=== PATIENT | male | born 1980 ===

== ENCOUNTER 2017-09-06 01:42 | Emergency (ER) | payer SELFPAY ==
--- NOTE | 2017-09-06 01:51 | ED PDOC ---
Arrival/HPI - General Time Seen by Provider: 09/06/17 01:45 Historian: Patient - History of Present Illness Narrative History of Present Illness (Text): 09/06/17 01:55 37 year old male, who denies any significant past medical history, presents to the emergency department complaining of sore throat discomfort associated with pain when swallowing. He states had a fever earlier in the day and also reports some ear discomfort at times. Patient reports runny nose, but denies any chills , chest pain, shortness of breath, nausea, vomiting, diarrhea, urinary symptoms , back pain, neck pain, headache, dizziness, or any other complaints. Symptom Onset: Gradual Symptom Course: Worsening Activities at Onset: Light Context: Home Past Medical History - Provider Review Nursing Documentation Reviewed: Yes Family/Social History - Physician Review Nursing Documentation Reviewed: Yes Family/Social History: No Known Family HX Allergies/Home Meds Allergies/Adverse Reactions: Allergies No Known Allergies Allergy (Verified 09/06/17 01:53) Review of Systems - Physician Review All systems were reviewed & negative as marked: Yes - Review of Systems Constitutional: Fevers. absent: Other (Chills) ENT: TMJ Pain, Sore Throat, Rhinorrhea Respiratory: absent: SOB Cardiovascular: absent: Chest Pain Gastrointestinal: absent: Diarrhea, Nausea, Vomiting Genitourinary Male: absent: Dysuria, Frequency, Hematuria Musculoskeletal: absent: Back Pain, Neck Pain Physical Exam Vital Signs Reviewed: Yes Vital Signs Temp Pulse Resp BP Pulse Ox 09/06/17 01:56 98.0 F 91 H 18 99/65 L 100 09/06/17 01:53 98.0 F Temperature: Afebrile Blood Pressure: Normal Pulse: Regular Respiratory Rate: Normal Appearance: Positive for: Well-Appearing, Non-Toxic, Comfortable Pain Distress: None Mental Status: Positive for: Alert and Oriented X 3 - Systems Exam Head: Present: Atraumatic, Normocephalic Pupils: Present: PERRL Extroacular Muscles: Present: EOMI Conjunctiva: Present: Normal Mouth: Present: Moist Mucous Membranes Pharnyx: Present: ERYTHEMA (Erythema to the Posterior pharnyx and tonsils bilaterally ), EXUDATE (Sca ty tonsil excudate), Other (Uvula Midline) Nose (Internal): Present: Rhinorrhea Neck: Present: Normal Range of Motion. No: Meningeal Signs Respiratory/Chest: Present: Clear to Auscultation, Good Air Exchange. No: Respiratory Distress, Accessory Muscle Use Cardiovascular: Present: Regular Rate and Rhythm, Normal S1, S2. No: Murmurs Abdomen: No: Tenderness, Distention, Peritoneal Signs Back: Present: Normal Inspection Upper Extremity: Present: Normal Inspection. No: Cyanosis, Edema Lower Extremity: Present: Normal Inspection. No: Edema Neurological: Present: GCS=15, CN II-XII Intact, Speech Normal Skin: Present: Warm, Dry, Normal Color. No: Rashes Lymphatic: Present: Cervical Adenopathy Psychiatric: Present: Alert, Oriented x 3, Normal Insight, Normal Concentration Medical Decision Making ED Course and Treatment: 09/06/17 01:55 Impression: 37 year old male presents complaining of sore throat discomfort associated with pain when swallowing, fever earlier today, rhinorrhea and some ear discomfort. Plan: -- Bicillin L-A Inj, Decadron Inj -- Reassess and disposition Progress Notes: - Medication Orders Current Medication Orders: Discontinued Medications Dexamethasone (Decadron Inj) 10 mg IM ONCE ONE Stop: 09/06/17 02:03 Last Admin: 09/06/17 02:28 Dose: 10 mg IM Administration Charges Document 09/06/17 02:28 AD (Rec: 09/06/17 02:28 AD [id number]) Injection Site MAR Injection Site Left Deltoid Charges for Administration # of IM Administrations 1 Penicillin G Benzathine (Bicillin L-A Inj) 1,200,000 units IM ONCE ONE PRN Reason: Protocol Stop: 09/06/17 02:03 Last Admin: 09/06/17 02:28 Dose: 1,200,000 units IM Administration Charges Document 09/06/17 02:28 AD (Rec: 09/06/17 02:29 AD [id number]) Injection Site MAR Injection Site Right Gluteus Jose Charges for Administration # of IM Administrations 1 - Scribe Statement The provider has reviewed the documentation as recorded by the Yovanny Leigh Provider Scribe Attestation: All medical record entries made by the Scribe were at my direction and personally dictated by me. I have reviewed the chart and agree that the record accurately reflects my personal performance of the history, physical exam, medical decision making, and the department course for this patient. I have also personally directed, reviewed, and agree with the discharge instructions and disposition. Disposition/Present on Arrival - Present on Arrival Any Indicators Present on Arrival: No - Disposition Have Diagnosis and Disposition been Completed?: Yes Diagnosis: Tonsillitis Disposition: HOME/ ROUTINE Disposition Time: 02:43 Patient Plan: Discharge Condition: GOOD Discharge Instructions (ExitCare): Sore Throat, Adult (DC), Bacterial Upper Respiratory Infection, Adult (DC) Additional Instructions: Drink plenty of cool liquids/take meds as prescribed/follow up with your doctor this week Prescriptions: Amoxicillin [Amoxil 500 mg Cap] 500 mg PO TID #21 cap
[2017-09-06 01:56] VITALS: TEMP 98
[2017-09-06 01:57] VITALS: RESP 18; O2SAT 100
[2017-09-06] MEDS ORDERED: Penicillin G Benzathine 1.2 Mill Unit/2 ml Syr IM ONE (02:02)
[2017-09-06 03:10] VITALS: BP 105/87; PULSE 85
== END 2017-09-06 02:45 | disposition home or self-care (01) ==
LOC: ED 01:42
DX: J03.90 Acute tonsillitis, unspecified (principal)
CPT/HCPCS: 96372; 99283; J0561; J1100

== ENCOUNTER 2018-05-25 07:41 | Outpatient (CLI) | payer SELFPAY | END 2018-05-25 07:42 | disposition home or self-care (01) | LOC: LAB 07:41 | DX: R30.0 Dysuria (principal); K57.90 Diverticulosis of intestine, part unspecified, without perforation or abscess without bleeding ==

== ENCOUNTER 2018-06-19 22:06 | Emergency (ER) | payer SELFPAY ==
[2018-06-19 22:48] VITALS: RESP 18
[2018-06-19] MEDS ORDERED: Penicillin G Benzathine 1.2 Mill Unit/2 ml Syr IM STA (22:56)
--- NOTE | 2018-06-19 23:00 | ED PDOC ---
Arrival/HPI - General Chief Complaint: ENT Problem Time Seen by Provider: 06/19/18 22:21 Historian: Patient - History of Present Illness Narrative History of Present Illness (Text): 06/19/18 22:57 38-year-old male with no significant past medical history complaining of sore throat and pain when swallowing the past few days. Reports tactile fever, no URI symptoms, no headache, no rash, no chest pain, or shortness of breath. Past Medical History - Infectious Disease Hx of Infectious Diseases: None - Cardiac Hx Cardiac Disorders: No - Pulmonary Hx Respiratory Disorders: No - Gastrointestinal Hx Fatty Liver Disease: Yes - Psychiatric Hx Substance Use: No - Surgical History Hx Appendectomy: Yes - Anesthesia Hx Anesthesia: Yes Hx Anesthesia Reactions: No Hx Malignant Hyperthermia: No Family/Social History Family/Social History: No Known Family HX Smoking Status: Never Smoked Hx Alcohol Use: No Hx Substance Use: No Allergies/Home Meds Allergies/Adverse Reactions: Allergies No Known Allergies Allergy (Verified 06/19/18 22:42) Review of Systems - Review of Systems Constitutional: Fevers. absent: Fatigue ENT: Sore Throat. absent: Rhinorrhea, Sinus Congestion Respiratory: absent: SOB, Cough Cardiovascular: absent: Chest Pain Gastrointestinal: absent: Abdominal Pain, Nausea, Vomiting Skin: absent: Rash, Skin Lesions Neurological: absent: Headache Physical Exam Vital Signs Temp Pulse Resp BP Pulse Ox 06/19/18 22:48 98.3 F 77 18 132/79 96 Temperature: Afebrile Blood Pressure: Normal Pulse: Regular Respiratory Rate: Normal Appearance: Positive for: Well-Appearing, Non-Toxic, Comfortable Pain Distress: None Mental Status: Positive for: Alert and Oriented X 3 - Systems Exam Head: Present: Atraumatic, Normocephalic Pupils: Present: PERRL Extroacular Muscles: Present: EOMI Conjunctiva: Present: Normal Ears: Present: Normal, NORMAL TM Mouth: Present: Moist Mucous Membranes Pharnyx: Present: ERYTHEMA, TONSILS ENLARGED. No: Uvular Deviation, Muffled/Hoarse Voice, Soft Palate/Uvular Edema Neck: Present: Normal Range of Motion. No: Meningeal Signs, Lymphadenopathy Respiratory/Chest: Present: Clear to Auscultation, Good Air Exchange. No: Respiratory Distress, Accessory Muscle Use Cardiovascular: Present: Regular Rate and Rhythm, Normal S1, S2. No: Murmurs Back: Present: Normal Inspection Upper Extremity: Present: Normal Inspection. No: Cyanosis, Edema Lower Extremity: Present: Normal Inspection. No: Edema Neurological: Present: GCS=15, CN II-XII Intact, Speech Normal Skin: Present: Warm, Dry, Normal Color. No: Rashes Psychiatric: Present: Alert, Oriented x 3, Normal Insight, Normal Concentration Medical Decision Making ED Course and Treatment: 06/19/18 22:59 Plan : - pcn g benzathine IM - toradol IM - decadron IM On reevaluation, patient remains awake alert and oriented 3 in no acute distress. He is speaking in full sentences, no drooling, no respiratory distress. Advised to follow up with primary care physician or the clinic in 1-2 days without fail. Advised to take medication as prescribed. Return to the emergency room at any time for any new or worsening symptoms. Patient states he fully agrees with and understands discharge instructions. States that he agrees with the plan and disposition. Verbalized and repeated discharge instructions and plan. I have given the patient opportunity to ask any additional questions. - PA / [employer] / Resident Statement MD/DO has reviewed & agrees with the documentation as recorded. Disposition/Present on Arrival - Present on Arrival Any Indicators Present on Arrival: No History of DVT/PE: No History of Uncontrolled Diabetes: No Urinary Catheter: No History of Decub. Ulcer: No History Surgical Site Infection Following: None - Disposition Have Diagnosis and Disposition been Completed?: Yes Diagnosis: Pharyngitis Disposition: HOME/ ROUTINE Disposition Time: 23:30 Patient Plan: Discharge Patient Problems: Current Active Problems Problem Status Onset Pharyngitis Acute Condition: STABLE Discharge Instructions (ExitCare): Sore Throat in Adults Additional Instructions: Thank you for letting us take care of you today. You were treated for p haryngitis. The emergency medical care you received today was directed at your acute symptoms. If you were prescribed any medication, please fill it and take as directed. It may take several days for your symptoms to resolve. Return to the Emergency Department if your symptoms worsen, do not improve, or if you have any other problems. Please contact your doctor in 2 days for re-evaluation and follow up / or call one of the physicians/clinics you have been referred to that are listed on the Patient Visit Information form that is included in your discharge packet. Bring any paperwork you were given at discharge with you along with any medications you are taking to your follow up visit. Our treatment cannot replace ongoing medical care by a primary care provider (PCP) outside of the emergency department. Thank you for allowing the [facility] team to be part of your care today. Prescriptions: RX: Ibuprofen [Motrin Tab] 800 mg PO TID PRN #30 tab PRN Reason: Pain, Moderate (4-7) Referrals: PCP,NO [Primary Care Provider] - [place] up [place] [facility] [place] - Follow up with primary Forms: [employer] (Italian)
[2018-06-19 23:48] VITALS: BP 129/78; PULSE 75; TEMP 98.2; O2SAT 100
== END 2018-06-19 23:48 | disposition home or self-care (01) ==
LOC: ED 22:06
DX: J02.9 Acute pharyngitis, unspecified (principal)
CPT/HCPCS: 96372; 99283; J0561; J1100; J1885

== ENCOUNTER 2018-07-04 07:54 | Outpatient (CLI) | payer SELFPAY | END 2018-07-04 07:55 | disposition home or self-care (01) | LOC: RAD 07:54 ==